=== PATIENT | female | born 1975 | race Caucasian/White ===

== ENCOUNTER → 2016-09-24 | Outpatient (CLI) | payer BC ==
[~2016-09-24] MED LIST: NORCO 325 MG-51 TAB PO; ROBAXIN 75750 MG/TAB PO
== END ==
LOC: MC.RAD 14:40
DX: Z12.31 Encounter for screening mammogram for malignant neoplasm of breast (principal); D24.2 Benign neoplasm of left breast; D24.1 Benign neoplasm of right breast

== ENCOUNTER → 2017-01-05 | Outpatient (CLI) | payer BC | LOC: COL.RAD 10:08 | DX: K82.4 Cholesterolosis of gallbladder (principal) ==

== ENCOUNTER → 2017-10-12 | Outpatient (CLI) | payer BC | LOC: MC.RAD 07:09 | DX: Z12.31 Encounter for screening mammogram for malignant neoplasm of breast (principal); N64.89 Other specified disorders of breast; Z98.82 Breast implant status ==

== ENCOUNTER → 2017-11-08 | Outpatient (CLI) | payer BC | LOC: MC.RAD 12:57 | DX: R92.8 Other abnormal and inconclusive findings on diagnostic imaging of breast (principal) ==

== ENCOUNTER → 2018-12-27 | Outpatient (CLI) | payer BC | LOC: MC.RAD 08:33 | DX: Z12.31 Encounter for screening mammogram for malignant neoplasm of breast (principal); Z98.82 Breast implant status ==

== ENCOUNTER → 2020-01-16 | Outpatient (CLI) | payer BC | LOC: MC.RAD 09:15 | DX: Z12.31 Encounter for screening mammogram for malignant neoplasm of breast (principal); Z98.82 Breast implant status ==

== ENCOUNTER → 2021-01-16 | Outpatient (CLI) | payer BC | LOC: MC.RAD 08:39 | DX: Z12.31 Encounter for screening mammogram for malignant neoplasm of breast (principal) ==

== ENCOUNTER → 2022-01-20 | Outpatient (CLI) | payer OTHER | LOC: MC.RAD 08:56 | DX: Z12.31 Encounter for screening mammogram for malignant neoplasm of breast (principal) ==